=== PATIENT | female | born 1990 ===

== ENCOUNTER 2017-12-02 14:09 | Emergency (ER) | payer OTHER ==
[~2017-12-02] VITALS: Ht 170.2 cm; Wt 68.0 kg
[2017-12-02] MEDS ORDERED: LEXAPRO5 MG (14:26)
[2017-12-02] MEDS ORDERED: XANAX1 MG (14:26)
== END 2017-12-02 20:12 | disposition home or self-care (01) ==
LOC: ER 14:09
DX: R53.1 Weakness (principal)